=== PATIENT | female | born 1950 | race Caucasian/White ===

== ENCOUNTER 2019-08-24 13:47 | Outpatient (CLI) | payer MEDICARE, OTHER ==
[~2019-08-24] VITALS: Ht 152 cm; Wt 75.4 kg
[2019-08-24 14:53] VITALS: BP 198/83
[2019-08-24 15:22] LABS: BASOPHILS % (AUTO) 1 % (0-10); EOSINOPHILS # (AUTO) 0.1 10^3/uL (0.0-0.3); EOSINOPHILS % (AUTO) 1 % (0-10); HEMATOCRIT 37 % (35-52); HEMOGLOBIN 11.6 G/DL (11.5-16.0); LYMPHOCYTES # (AUTO) 1.9 X 10^3 (1.0-4.0); LYMPHOCYTES % (AUTO) 26 % (12-44); MEAN CORPUSCULAR HEMOGLOBIN 25 PG (25-34); MEAN CORPUSCULAR HGB CONC 31 G/DL (32-36); MEAN CORPUSCULAR VOLUME 79 FL (80-99); MEAN PLATELET VOLUME 10.1 FL (7.4-10.4); MONOCYTES # (AUTO) 0.6 X 10^3 (0.0-1.0); MONOCYTES % (AUTO) 8 % (0-12); NEUTROPHILS # (AUTO) 4.7 X 10^3 (1.8-7.8); NEUTROPHILS % (AUTO) 64 % (42-75); PLATELET COUNT 339 10^3/uL (130-400); RED CELL DISTRIBUTION WIDTH 14.2 % (10.0-14.5); WHITE BLOOD COUNT 7.3 10^3/uL (4.3-11.0)
[2019-08-24] MEDS ORDERED: ASPI-983 PO (16:14)
[2019-08-24] MEDS ORDERED: CHOL10007 PO (16:14)
[2019-08-24] MEDS ORDERED: LACT1CAP72 PO (16:14)
[2019-08-24] MEDS ORDERED: MELA3TAB PO (16:14)
[2019-08-24] MEDS ORDERED: GOLI50VI IV (16:20)
[2019-08-25] MEDS ORDERED: HYDR-3812 PO (15:43)
[2019-08-25] MEDS ORDERED: TRAM50TA2 PO (15:43)
[2019-08-25] MEDS ORDERED: ALLO300T2 PO (15:43)
[2019-08-25] MEDS ORDERED: ERGO50006 PO (15:43)
[2019-08-25] MEDS ORDERED: SIMPONI (15:49)
[2019-08-25] MEDS ORDERED: GOLI50VI IV (15:49)
[2019-08-25] MEDS ORDERED: INSU100V SQ (15:51)
[2019-08-25] MEDS ORDERED: ATOR40TA70 PO (15:58)
[2019-08-25] MEDS ORDERED: DOXA2TAB2 PO (15:58)
[2019-08-25] MEDS ORDERED: CLOP75TA69 PO (15:58)
[2019-08-25] MEDS ORDERED: METO200T48 PO (15:58)
[2019-08-25] MEDS ORDERED: DONE10TA41 PO (15:58)
[2019-08-25] MEDS ORDERED: NF-ACI30T PO (15:58)
[2019-08-25] MEDS ORDERED: LISI1TAB8 PO (15:58)
== END 2019-08-24 15:30 ==
LOC: PREOP 13:47
PROVIDERS: ATTEND Orthopaedic Surgery
DX: Z01.812 Encounter for preprocedural laboratory examination (principal); M48.061 Spinal stenosis, lumbar region without neurogenic claudication; Z98.1 Arthrodesis status
CPT/HCPCS: 36415; 85025; 86850; 86900; 86901; 87081

== ENCOUNTER 2019-08-29 05:48 | Inpatient (IN) | payer MEDICARE, OTHER ==
[~2019-08-29] VITALS: Ht 152 cm; Wt 75.4 kg
[2019-08-29] VITALS (15 sets, daily range): BP systolic 76–156; BP diastolic 31–87
[~2019-08-29 05:48] MED LIST: ALLO300T2 PO; ASPI-983 PO; ATOR40TA70 PO; CHOL10007 PO; CLOP75TA69 PO; DONE10TA41 PO; DOXA2TAB2 PO; ERGO50006 PO; GOLI50VI IV; HYDR-3812 PO; INSU100V SQ; LACT1CAP72 PO; LISI1TAB8 PO; MELA3TAB PO; METO200T48 PO; NF-ACI30T PO; SIMPONI; TRAM50TA2 PO
[2019-08-29] MEDS ORDERED: ceFAZolin 2 GM IV Premixed 50 ML IV ONE (06:15)
[2019-08-29] MEDS ORDERED: CATHETER FLUSH 10 ML SYR IV PRN (06:45)
[2019-08-29] MEDS ORDERED: proPOfol 200 MG/20 ML (DIPRIVAN) VIAL IV ONE (06:54)
[2019-08-29] MEDS ORDERED: LIDOCAINE PF 2% 5 ML (XYLOCAINE) VIAL ONE (06:54)
[2019-08-29] MEDS ORDERED: SEVOFLURANE (ULTANE) 15 ML INHAL SOLN ONE ×6 (06:54→11:14)
[2019-08-29] MEDS ORDERED: fentaNYL INJECTION 100 MCG/2 ML AMP ONE ×2 (06:55→08:14)
[2019-08-29] MEDS ORDERED: MIDAZOLAM 2 MG/2 ML (VERSED) VIAL ONE (06:55)
[2019-08-29] MEDS: LACTATED RINGERS 1,000 ML IV PRN ×3 (06:55→10:54)
[2019-08-29] MEDS ORDERED: NS (IVPB) 100 ML ONE (07:09)
[2019-08-29] MEDS ORDERED: BACITRACIN OINTMENT 28 GM TUBE ONE (07:17)
[2019-08-29] MEDS ORDERED: VANCOMYCIN 1000 MG/VIAL ONE (07:17)
[2019-08-29] MEDS ORDERED: BUP/EPI 0.5% 1:200,000 (MARCAINE) 10ML VIAL IJ ONE ×2 (07:19→07:52)
[2019-08-29] MEDS ORDERED: BACITRACIN 100,000 UNIT/NS 1000 ML POUR BOTTLE IR ONE ×2 (07:45)
[2019-08-29] MEDS ORDERED: SUCCINYLCHOLINE INJ 100 MG/5 ML SYR ONE (08:14)
[2019-08-29] MEDS ORDERED: ROCURONIUM 10 MG/ML 5 ML SYRINGE IV ONE (08:14)
[2019-08-29] MEDS ORDERED: NEOSTIGMINE 3 MG/3 ML VIAL ONE (09:21)
[2019-08-29] MEDS ORDERED: GLYCOPYRROLATE 0.2 MG/ML (ROBINUL) 2 ML VIAL ONE (09:21)
[2019-08-29] MEDS ORDERED: ONDANSETRON 4 MG/2 ML (SDV) Z0FRAN IV PRN (10:00)
[2019-08-29] MEDS ORDERED: ACETAMINOPHEN 325 MG TABLET PO PRN (10:00)
[2019-08-29] MEDS ORDERED: oxyCODONE/APAP 5/325MG (PERCOCET 5) TABLET PO PRN (10:00)
[2019-08-29] MEDS ORDERED: morphine INJ 10 MG/ML 1ML (SYR OR VIAL) IVP ONE (10:15)
[2019-08-29] MEDS ORDERED: MEPERIDINE (DEMEROL) INJ 50 MG/ML IVP ONE (10:15)
[2019-08-29] MEDS ORDERED: ONDANSETRON 4 MG/2 ML (SDV) Z0FRAN IVP PRN (10:15)
--- NOTE | 2019-08-29 11:14 | Diagnostic Imaging Report ---
INDICATION: Fluoroscopy for lumbar spine surgery. Fluoroscopy was provided in the OR during lumbar spine surgery. 32 seconds of fluoroscopic time was utilized. Images demonstrate postoperative changes of interbody fusion of the upper lumbar spine. IMPRESSION: Fluoroscopy for lumbar spine surgery. Dictated by: Dictated on workstation # [id number]
--- NOTE | 2019-08-29 12:02 | Anesthesia-General Post-Op ---
General Patient Condition Mental Status/LOC: Same as Preop (after fluid bolus and treated medically in PACU) Cardiovascular: Satisfactory Nausea/Vomiting: Absent Respiratory: Satisfactory Pain: Controlled Complications: Absent Post Op Complications Complications None Follow Up Care/Instructions Patient Instructions None needed. Anesthesia/Patient Condition Patient Condition Patient is doing well, no complaints, stable vital signs, no apparent adverse anesthesia problems. No complications reported per nursing. SIMÓN BALDWIN CRNA Aug 29, 2019 12:02 POS
[2019-08-29] MEDS: fentaNYL INJECTION 100 MCG/2 ML AMP IVP PRN ×4 (12:24→16:56)
--- NOTE | 2019-08-29 13:37 | OPERATIVE REPORT ---
DATE OF SERVICE: 08/29/2019 SURGEON: Darrius Chandler DO WEIGHT LOSS CENTRE MANAGER: SILVESTRE Branch. This is a medically necessary procedure. Data Warehouse Manager was necessary for retraction of vital neurovascular structures. Without an retail assistant store manager, the procedure would not be possible. PREOPERATIVE DIAGNOSES: 1. L2-L3 spondylolisthesis. 2. Lumbar spinal stenosis (bony, foraminal, subluxation). 3. Lumbar radiculopathy. POSTOPERATIVE DIAGNOSES: 1. L2-L3 spondylolisthesis. 2. Lumbar spinal stenosis (bony, foraminal, subluxation). 3. Lumbar radiculopathy. PROCEDURES PERFORMED: 1. L2-L3 direct lateral interbody lumbar fusion. 2. Application of titanium interbody cage L2-L3. 3. Application of anterior instrumentation, L2-L3. 4. Bilateral laminectomy with complete facetectomies, L2-L3. 5. Application of posterior instrumentation (right-sided), L2-L3. 6. Posterior spinal fusion, L2-L3. 7. Use of human Allograft for spine. 8. Use of local bone autograft. COMPLICATIONS: None. SPECIMEN SENT: None. DRAINS PLACED: Subfascial Hemovac. ESTIMATED BLOOD LOSS: 200 mL. ANESTHESIA: General endotracheal tube anesthesia with local anesthetic. HISTORY OF PRESENT ILLNESS: The patient is a very pleasant 69-year-old female patient of mine, who presented to me with low back pain and symptoms consistent with L2-L3 spinal stenosis. MRI verified these diagnoses and she did wish to proceed with surgery after having failed all conservative measures. DESCRIPTION OF PROCEDURE: The patient was identified by name on wrist band in the preoperative holding area. Her operative site was signed, consent was signed. SCDs were placed. Neuromonitoring was hooked up and antibiotics were started. She was taken to the operating room theater and placed under general endotracheal tube anesthesia and then transferred to the operating room table in the lateral position with the left side up. She was prepped and draped in the usual sterile fashion. Formal timeout was conducted. X-ray was then brought in and I made an incision over the L2-L3 disk space. I proceeded with a standard lateral retroperitoneal transpsoas approach to the L2-L3 disk space. I docked a tubular table, mounted Reva retractor over the midpoint of the L2-L3 disk space. I used EMG neuromonitoring to exclude the presence of any nerves. I then performed an annulotomy followed by complete diskectomy. I sized and chose the appropriate titanium interbody cage packed with human allograft and seated into the midline position. At this point, I placed anterior instrumentation in the form of plate and screws. The screws went through the plate into the body of L2 and into the body of L3. I irrigated the wound, maintained hemostasis and closed in my usual layered fashion utilizing #0 Vicryl followed by 2-0 Vicryl followed by riccardo for skin. We applied dressings and we then placed the patient in the prone position on a radiolucent Wilder table. We reprepped and draped the patient. At this point, I made a midline incision from spinous process of L2 and spinous process of L3. I proceeded with bilateral subperiosteal paraspinal muscular approach. I then used fluoroscopy to place unilateral pedicle screws in the pedicle of L2 and the pedicle of L3. AP and lateral x-ray demonstrated good positioning of the screws, the EMG neuromonitoring further validated this. At this point, I performed bilateral laminectomy with complete facetectomy and foraminotomies at L2-L3 thoroughly decompressing the exiting and traversing nerve roots. At this point, I placed a anna on the right through the TLIF, placed set screws and finally tightened those set screws. I irrigated the wound thoroughly, maintained hemostasis. I packed human allograft and local bone autograft in the left and right gutters to promote posterior spinal fusion. I placed a subfascial Hemovac drain and I closed the wound utilizing #0 Vicryls followed by 2-0 Vicryl followed by riccardo for skin. We applied dressings and took the patient in the supine position in the PACU where she awoke without incident. She tolerated the procedure well. PLAN: At this time is to get the patient out of bed on postop day #1. I am going to admit her for IV antibiotics, IV pain control and postoperative monitoring. Please note that the instrumentation utilized was Eli for the TLIF cage, NuVasive for the posterior screws. Job ID: [id number] DocumentID: [id number] Dictated Date: 08/29/2019 09:52:16 Rubber Cutter Date: 08/29/2019 13:36:04 Dictated By: DARRIUS CHANDLER DO
[2019-08-29] MEDS: HYDROcodone/APAP 5 MG/325 MG (LORTAB) TAB PO PRN ×2 (14:13→19:01)
[2019-08-29] MEDS: ceFAZolin INJECTION 1,000 MG in WATER (STERILE) FOR INJECTION 10 ML IV SCH ×2 (15:32→22:03)
[2019-08-29] MEDS ORDERED: NS IV 1000 ML 1,000 ML ONE (18:40)
[2019-08-29] MEDS ORDERED: NS 500 ML IV BAG IV NR (18:45)
[2019-08-29] MEDS ORDERED: NS 100 ML (IVPB) BAG IV ONE (18:45)
[2019-08-29] MEDS: doxAzosin 2 MG (CARDURA) TAB PO SCH (19:55)
[2019-08-30] VITALS: BP 160/74
[2019-08-30 04:00] VITALS: BP 122/64
[2019-08-30 05:07] LABS: HEMOGLOBIN 8.2 G/DL (11.5-16.0); MEAN PLATELET VOLUME 10.2 FL (7.4-10.4); RED CELL DISTRIBUTION WIDTH 14.2 % (10.0-14.5); WHITE BLOOD COUNT 9.7 10^3/uL (4.3-11.0)
[2019-08-30] MEDS: ceFAZolin INJECTION 1,000 MG in WATER (STERILE) FOR INJECTION 10 ML IV SCH (05:10)
[2019-08-30] MEDS: NS IV 1000 ML 1,000 ML IV SCH ×3 (05:13→18:47)
[2019-08-30 05:25] LABS: ALBUMIN 2.9 GM/DL (3.2-4.5); BILIRUBIN,TOTAL 0.4 MG/DL (0.1-1.0); CALCIUM 9.4 MG/DL (8.5-10.1); CREATININE SERUM 1.43 MG/DL (0.60-1.30); POTASSIUM 3.6 MMOL/L (3.6-5.0); TOTAL PROTEIN 5.4 GM/DL (6.4-8.2)
[2019-08-30] MEDS: HYDROcodone/APAP 5 MG/325 MG (LORTAB) TAB PO PRN ×3 (07:50→18:46)
[2019-08-30 08:00] VITALS: BP 153/82
[2019-08-30] MEDS ORDERED: lisINopril 10 MG (PRINIVIL) TABLET PO SCH (09:00)
[2019-08-30] MEDS: PANTOPRAZOLE 20 MG TABLET (PROTONIX) PO SCH (09:06)
[2019-08-30] MEDS: meTOprolol SUCCINATE 100 MG (TOPROL XL) TAB PO SCH (09:06)
[2019-08-30] MEDS: MULTIVIT W/MINERALS TAB (THERAGRAN M) PO SCH (09:06)
[2019-08-30] MEDS: DONEPEZIL 10 MG (ARICEPT) TAB PO SCH (09:07)
--- NOTE | 2019-08-30 09:42 | Physical Therapy Evaluation ---
PT Evaluation-General Medical Diagnosis Admission Date Aug 29, 2019 at 05:48 Medical Diagnosis: stenosis; L2-3 fusion with bone allograft and caging Onset Date: Aug 29, 2019 Therapy Diagnosis Therapy Diagnosis: debility, weakness Precautions Precautions/Isolations: Fall Prevention, Standard Precautions Weight Bear Status Right Lower Extremity: Right Non Weight Bearing Left Lower Extremity: Left Non Weight Bearing Referral Physician: Bernie Reason for Referral: Evaluation/Treatment Medical History Reviewed History: Yes Social History Home: Single Level Current Living Status: Spouse Prior Prior Level of Function SCALE: Activities may be completed with or without assistive devices. 1-Kcbeiohatp-zhtxmjs completes the activity by him/herself with no assistance from a helper. 5-Set-up or Clean-up Assistance-helper sets up or cleans up; patient completes activity. [place] assists only prior to or following the activity. 4-Supervision or Touching Assistance-helper provides verbal cues and/or t ouching/steadying and/or contact guard assistance as patient completes activity. Assistance may be provided throughout the activity or intermittently. 3-Partial/Moderate Assistance-helper does LESS THAN HALF the effort. [place] lifts, holds or supports trunk or limbs, but provides less than half the effort. 2-Substantial/Maximal Assistance-helper does MORE THAN HALF the effort. [place] lifts or holds trunk or limbs and provides more than half the effort. 5-Ibowdzrre-qpkfol does ALL the effort. Patient does none of the effort to complete the activity. Or, the assistance of 2 or more helpers is required for the patient to complete the activity. If activity was not attempted, code reason: 7-Patient Refused. 9-Not Applicable-not attempted and the patient did not perform the activity before the current illness, exacerbation or injury. 10-Not Attempted due to Environmental Limitations-(lack of equipment, weather restraints, etc.). 88-Not Attempted due to Medical Conditions or Safety Concerns. Bed Mobility: 3 Transfers (B,C,W/C): 3 Gait: 9 Stairs: 9 Wheelchair Mobility: 3 Prior Devices Use: Manual wheelchair nonambulatory x 1 yr or more per patient report/spouse performs all functional mobility and ADL's PT Evaluation-Current Subjective Patient agrees to PT. Reports severe pain. Patient has not moved much since hospitalization, reports she gets around by wheelchair normally and helps with all mobility. Pain Numeric Pain Scale: 10-Worst Possible Pain Location: Lower Location Body Site: Back Pain Description: Acute Objective Patient Orientation: Normal For Age Attachments: SCD's, Oxygen (3L), IV ROM/Strength ROM Lower Extremities WFL Strength Lower Extremities Bilaterally 3/5 Integumentary/Posture Integumentary See nursing notes Bowel Incontinence: No Bladder Incontinence: No Posture kyphotic, especially cervical Sensory Vision: Functional Hearing: Functional Transfers Roll Left to Right (QC): 2 Sit to Lying (QC): 1 Lying to Sitting/Side of Bed(Q: 2 Sit to Stand (QC): 1 Chair/Spq-jm-Vzghj Xfer(QC): 1 Car Transfer (QC): 88 Gait Does the Patient Walk?: No and Walking Goal IS indicated Mode of Locomotion: Both Anticipated Mode of Locomotion: Both Walk 10 feet (QC): 9 Walk 50 ft with 2 Turns(QC): 9 Walk 150 ft (QC): 9 Walking 10ft/uneven surface-QC: 9 Gait Assistive Device: FWW Comments/Gait Description 5-10' Wheelchair Training Does the Pt Use a Wheelchair?: Yes Wheel 50 ft with 2 turns (QC): 9 Wheel 150 ft (QC): 9 Type of Wheelchair: Manual spouse propels w/c Stairs 1 Step (curb) (QC): 9 4 Steps (QC): 9 12 Steps (QC): 9 Balance Sitting Static: Normal Sitting Dynamic: Normal Standing Static: Fair Standing Dynamic: Fair Picking up an Object (QC): 9 Assessment/Needs Patient required max assist with bed mobility to roll to side and sit to EOB, d/t weakness and pain limitations. Increase in pain once sitting EOB. Brace was placed around patient prior to transfer. Patient was dependent for STS and transfer to wheelchair. Rehab Potential: Fair PT [place] Goals Nursing Home Goals PT Nursing Home Goals Time Frame: Sep 06, 2019 Roll Left & Right (QC): 3 Sit to Lying (QC): 3 Lying-Sitting on Side/Bed(QC): 3 Sit to Stand (QC): 3 Chair/Mrh-ug-Dizht Xfer(QC): 3 Toilet Transfer (QC): 3 Car Transfer (QC): 3 Does the Patient Walk: No and Walking Goal IS indicated Walk 10 feet (QC): 2 Walk 50ft with 2 Turns (QC): 9 Walk 150 ft (QC): 9 Walking 10ft on Uneven Surface: 9 1 Step (curb) (QC): 9 4 Steps (QC): 9 12 Steps (QC): 9 Picking up an Object (QC): 9 Does the Pt use WC or Scooter?: Yes Wheel 50 feet with 2 turns (QC: 3 Type: Manual Type: Manual spouse propels w/c PT Plan Problem List Problem List: Activity Tolerance, Functional Strength, Safety, Balance, Transfer, Bed Mobility Treatment/Plan Treatment Plan: Continue Plan of Care Treatment Plan: Bed Mobility, Education, Functional Activity Ady, Functional Strength, Safety, Therapeutic Exercise, Transfers Treatment Duration: Sep 10, 2019 Frequency: 6 times per week Estimated Hrs Per Day: .5 hour per day Patient and/or Family Agrees t: Yes Discharge Recommendations Therapy Discharge Recommendati: Other, See Comments (snf facilitly for continued care) Time/GCodes Time In: 915 Time Out: 932 Total Billed Treatment Time: 17 Total Billed Treatment 1 visit EVModC 17min REYNA SY PT Aug 30, 2019 09:42 POS
[2019-08-30 12:00] VITALS: BP 183/60
--- NOTE | 2019-08-30 12:34 | Diagnostic Imaging Report ---
INDICATION: Pain. FINDINGS: Posterior left lateral and interbody fusion at L2-L3 has been performed. The alignment is anatomic. There is an overlying surgical drain and soft tissue clips. No suspicious foreign body is evident. IMPRESSION: Spinal instrumentation with no acute pathological finding revealed. Dictated by: Dictated on workstation # [id number]
--- NOTE | 2019-08-30 13:06 | Occ Therapy Progress Note ---
Therapy Progress Note Order received for OT eval and treat. Chart review completed. Attempted evaluation at 1110. Pt resting in bed, declined therapy at this time. Pt requests pain meds, RN notified. Will attempt to complete at later time as pt able to tolerate. 1, visit SUSY MONTEIRO OT Aug 30, 2019 13:06 POS
[2019-08-30] MEDS: fentaNYL INJECTION 100 MCG/2 ML AMP IVP PRN ×2 (13:57→18:47)
--- NOTE | 2019-08-30 14:00 | Occupational Therapy Eval ---
OT Evaluation-General/PLF Medical Diagnosis Admission Date Aug 29, 2019 at 05:48 Medical Diagnosis: stenosis; L2-3 fusion with bone allograft and caging Onset Date: Aug 29, 2019 Therapy Diagnosis Therapy Diagnosis: Decreased ADL and functional mobility Precautions Precautions/Isolations: Fall Prevention, Standard Precautions Safety Interventions: Bed Exit Alarm Weight Bear Status Weight Bearing Restriction: Non Weight Bearing Location Restriction: L LE, R LE Referral Physician: Bernie Referral Reason: Activity Tolerance, Self Care, Evaluation/Treatment, Strengthening/ROM Medical History Additional Medical History No additional PMHx noted at this time. Current History lumbar spinal stenosis with L2-3 fusion Reviewed History: Yes Social History Home: Single Level Current Living Status: Spouse Entry Into Home: Level Entry (pt and state stairs to enter though if they drive uphill then level entry to backside, though a longer/ more rough terrain ) Steps Into Home: 0 ADL-Prior Level of Function SCALE: Activities may be completed with or without assistive devices. 4-Ngtmyjsdfk-otsuico completes the activity by him/herself with no assistance from a helper. 5-Set-up or Clean-up Assistance-helper sets up or cleans up; patient completes activity. [place] assists only prior to or following the activity. 4-Supervision or Touching Assistance-helper provides verbal cues and/or touching/steadying and/or contact guard assistance as patient completes activity. Assistance may be provided throughout the activity or intermittently. 3-Partial/Moderate Assistance-helper does LESS THAN HALF the effort. [place] lifts, holds or supports trunk or limbs, but provides less than half the effort. 2-Substantial/Maximal Assistance-helper does MORE THAN HALF the effort. [place] lifts or holds trunk or limbs and provides more than half the effort. 5-Pznlynbie-iwzhxf does ALL the effort. Patient does none of the effort to complete the activity. Or, the assistance of 2 or more helpers is required for the patient to complete the activity. If activity was not attempted, code reason: 7-Patient Refused. 9-Not Applicable-not attempted and the patient did not perform the activity before the current illness, exacerbation or injury. 10-Not Attempted due to Environmental Limitations-(lack of equipment, weather restraints, etc.). 88-Not Attempted due to Medical Conditions or Safety Concerns. Self Care: Needed Some Help Functional Cognition: Independent DME/Equipment: Bath Chair, Tub/Shower DME/Equipment Comments Pt states she was able to complete most ADLs on own with use of w/c. Occupation: retired Drive Self: No Leisure Interests: sabianism OT Current Status Subjective Pt seen in bed. Pt c/o 5/10 pain in back, agreeable to OT eval and treat. Mental Status/Objective Patient Orientation: Person, Place, Situation, Normal For Age Attachments: Drains, IV, Oxygen Current Glasses/Contacts: Yes Hearing Aids: No Dentures/Partials: No Hand Dominance: Right Upper Extremity ROM WFL BUE PROM Upper Extremity Coordination WFL BUE Upper Extremity Sensation WFL no c/o paresthesias Upper Extremity Strength impaired: pt able to reach ~90* shoulder flexion with increased time. ADL-Treatment Eating (QC): 5 (Pt completes drinking from straw with s/u) Oral Hygiene (QC): 07 Shower/Bathe Self (QC): 07 Upper Body Dressing (QC): 1 (based on pt's pain level and functional mobility, pt would be TD for back brace donning.) Lower Body Dressing (QC): 1 (based on pt's pain level and functional mobility) On/Off Footwear (QC): 1 (based on pt's pain level and functional mobility) Toileting Hygiene (QC): 1 (based on pt's pain level and functional mobility) Toilet Transfer (QC): 1 (based on pt's pain level and functional mobility) Other Treatments Pt seen in bed, and emts present. Pt leaning to R side, requires TD to adjust hips/ shoulders for straight positioning. Pt's attempts to reposition when pt requests, holds on to pt's arm. educated on need to adjust from core rather than arm for safety. Pt completes evaluation in bed, s/u for food. Based on clinical judgement, pt would be TD for UB/ LB dressing, footwear, toileting and hygiene. Pt denies need for further grooming/ bathing tasks. Pt states she could go to the bathroom if needed, pt's and emts leaves room. Pt asked of NWB status, pt's nursing unit coordinator states pt was able to utilize FWW to get from recliner to bed earlier in day. Pt states she is unaware of precautions. Pt states increased pain when mobilizing from reclined position, nursing unit coordinator present, able to hold pt's core and attempt back brace donning ramirez joya pt's back held in midline. Pt expresses increased pain and requests desire for pain medication before moving to commode. Pt repositioned with nursing unit coordinator assist with TD back to bed. Pt sat up and repositioned for feeding task, able to reach and drink tea. Pt educated on pain management and medication administration prior to feeling overwhelmed with pain. Pt agrees, left in bed, call light in reach, all needs met, notified of pt's position. Education OT Patient Education: Correct positioning, Modified ADL techniques, Purpose of tx/functional activities, Reviewed precautions, Rehab process, Safety issues Teaching Recipient: Patient Teaching Methods: Demonstration, Discussion Response to Teaching: Verbalize Understanding OT Senior Net Application Developer Goals [facility] Goals Time Frame: Sep 13, 2019 Eating (QC): 6 Oral Hygiene (QC): 6 Toileting Hygiene (QC): 3 Shower/Bathe Self (QC): 3 Upper Body Dressing (QC): 4 Lower Body Dressing (QC): 3 On/Off Footwear (QC): 3 Additional Goals: 1-Demonstrate ADL Tasks, 2-Verbalize Understanding, 3- ImproveStrength/Ady 1=Demonstrate adherence to instructed precautions during ADL tasks. 2=Patient will verbalize/demonstrate understanding of assistive devices/modifications for ADL. 3=Patient will improve strength/tolerance for activity to enable patient to perform ADL's. OT Education/Plan Problem List/Assessment Assessment: Decreased Activ Tolerance, Decreased UE Strength, Dependent Transfers, Impaired Bed Mobility, Impaired Funct Balance, Impaired I ADL's, Impaired Self-Care Skills, Restricted Funct UE ROM Discharge Recommendations Plan/Recommendations: Continue POC Treatment Plan/Plan of Care Treatment,Training & Education: Yes Patient would benefit from OT for education, treatment and training to promote independence in ADL's, mobility, safety and/or upper extremity function for ADL's. Plan of Care: ADL Retraining, Caregiver Training, Concurrent Therapy, Functional Mobility, UE Funct Exercise/Act Treatment Duration: Sep 13, 2019 Frequency: 5 times per week Estimated Hrs Per Day: .25 hour per day Rehab Potential: Fair Time/GCodes Start Time: 12:57 Stop Time: 13:24 Total Time Billed (hr/min): 27 Billed Treatment Time 1, EVM (12), ADL (15)= 27 YOMAIRA POND OTR Aug 30, 2019 14:00 POS
--- NOTE | 2019-08-30 14:58 | Anesthesia-General Post-Op ---
General Patient Condition Mental Status/LOC: Same as Preop Cardiovascular: Satisfactory Nausea/Vomiting: Absent Respiratory: Satisfactory Pain: Controlled Complications: Absent Post Op Complications Complications None Follow Up Care/Instructions Patient Instructions None needed. Anesthesia/Patient Condition Patient Condition Patient is doing well, no complaints, stable vital signs, no apparent adverse anesthesia problems. No complications reported per nursing. ELKIN BACA CRNA Aug 30, 2019 14:58 POS
--- NOTE | 2019-08-30 15:04 | Consultation - Hospitalist ---
HPI History of Present Illness: HPI/Chief Complaint Pt is a 69yoCM with a PMH of HTN, IDDMII, dementia who was admitted for L2-L3 fusion and laminectomy by Dr Chandler. I am consulted for medical management. She reports she is doing well today and has already worked with PT. Her pain is currently controlled but still present. She reports she has already gotten up an goen to the bathroom as well. She is currently wearing her insulin pump and believes her basal rate is 1u/hr but is not sure and can't access it now due to her brace. Her states that she does carb counting for meals but her appetite has been down while she has been here. Her BP has also been elevated this afternoon. On review of labs her creatinine is 1.4 and I have no baseline to decipher if this is an LISS or CKD. Source: patient Date Seen 08/30/19 Attending Physician Darrius Chandler DO PCP Bradley Messer DO Referring Physician Dr Chandler Date of Admission Aug 29, 2019 at 05:48 Home Medications & Allergies Home Medications Reviewed patient Home Medication Reconciliation performed by pharmacy medication reconciliations construction technician and/or nursing. Patients Allergies have been reviewed. Allergies Allergies Coded Allergies Sulfa (Sulfonamide Antibiotics) (Verified Allergy, Mild, FLUSHED, 08/24/19) Past Icagwgf-Ihmxjt-Gekvvh Hx Past Med/Social Hx: Reviewed Nursing Past Med/Soc Hx Patient Social History Alcohol Use: Denies Use Recreational Drug Use: No Smoking Status: Never a Smoker Physical Abuse Screen: No Sexual Abuse: No Recent Foreign Travel: No Contact w/other who traveled: No Recent Hopitalizations: Yes (JUN 2019 FOR LOW BLOOD SUGAR) Recent Infectious Disease Expo: No Immunizations Up To Date Date of Pneumonia Vaccine: Aug 28, 2017 Date of Influenza Vaccine: Jul 12, 2019 Seasonal Allergies Seasonal Allergies: No Past Medical History Surgeries: Orthopedic Cardiac: Coronary Artery Disease, Heart Murmur, High Cholesterol, Hypertension Sexually Transmitted Disease: No HIV/AIDS: No Genitourinary: Kidney Stones Gastrointestinal: Gastroesophageal Reflux, Chronic Constipation Musculoskeletal: Chronic Back Pain Endocrine: Diabetes, Insulin dep Loss of Vision: Denies Hearing Impairment: Denies Psychosocial: Anxiety, Depression Skin/Integumentary: Psoriasis History of Blood Disorders: Yes (ANEMIA) Adverse Reaction to Blood Michelle: No Review of Systems Constitutional: no symptoms reported EENTM: no symptoms reported Respiratory: no symptoms reported Cardiovascular: no symptoms reported Gastrointestinal: no symptoms reported Genitourinary: no symptoms reported Musculoskeletal: see HPI Skin: no symptoms reported Psychiatric/Neurological: No Symptoms Reported Physical Exam Physical Exam Vital Signs Vital Signs - First Documented Capillary Refill : Less Than 3 Seconds Height, Weight, BMI Height: '" Weight: lbs. oz. kg; 32.63 BMI Method: General Appearance: No Apparent Distress, Chronically ill, Obese HEENT: Moist Mucous Membranes; No Scleral Icterus (L), No Scleral Icterus (R) Neck: Supple; No Thyromegaly Respiratory: Lungs Clear, No Accessory Muscle Use, No Respiratory Distress Cardiovascular: Regular Rate, Rhythm, Systolic Murmur Gastrointestinal: Normal Bowel Sounds, Non Tender, Soft Extremity: No Calf Tenderness, No Pedal Edema Neurologic/Psychiatric: Alert, Oriented x3, Normal Mood/Affect Skin: Normal Color, Warm/Dry Results Results/Procedures Labs Laboratory Tests 08/30/19 04:40 Patient resulted labs reviewed. Assessment/Plan Assessment and Plan Assess & Plan/Chief Complaint L2-L3 spondylolisthesis s/p bilateral laminectomy and fusion PT/OT Pain control Management per primary Elevated Creatinine Unsure if CKD or LISS Continue IVF Check labs in AM Hold lisinopril IDDMII Accu checks Continue insulin pump HTN Systolic Murmur- likely CAD BP elevated Continue home meds as able Follows with Dr Cantor as an outpatient Microcytic anemia reportedly chronic anemia Check in AM Transfuse for Hemoglobin less than 8 due to heart disease Clinical Quality Measures DVT/VTE Risk/Contraindication: Risk Factor Score Per Nursin RFS Level Per Nursing on Admit: 3=High SHARRI DONNELLY MD Aug 30, 2019 15:04 POS
[2019-08-30 16:00] VITALS: BP 139/62
--- NOTE | 2019-08-30 17:18 | Progress Note ---
Subjective Date Seen by a Provider: Aug 30, 2019 Time Seen by a Provider: 17:13 Subjective/Events-last exam POD #1 s/p DLIF, lami/ psif. Called by the nurse last night x 2 for oliguria. Bolused patient and ns started 100/hr. Order BMP but BNP was placed in error, CMP this am showed elevated Cr without comparative baseline. Dr Munoz consulted for LISS. Patient reports back and leg pain and has been OOT with PT. Encouraged IS which is at bedside. Review of Systems General: No Chills HEENT: No Head Aches Cardiovascular: No: Chest Pain Gastrointestinal: No: Nausea, Vomiting Genitourinary: Other (oliguria) Musculoskeletal: back pain, leg pain Neurological: No: Weakness, Numbness, Incoordination Objective Exam Vital Signs Date Time Temp Pulse Resp B/P (MAP) Pulse Ox O2 Delivery O2 Flow Rate FiO2 08/30/19 16:00 36.6 63 18 139/62 (87) 94 Room Air 08/30/19 12:00 36.7 62 16 183/60 (101) 99 Nasal Cannula 2.00 08/30/19 09:00 Nasal Cannula 2.00 08/30/19 08:00 36.8 72 18 153/82 (105) 100 Nasal Cannula 2.00 08/30/19 06:00 99 Nasal Cannula 2.00 08/30/19 04:00 36.7 68 20 122/64 (83) 96 Nasal Cannula 2.00 08/30/19 02:18 99 Nasal Cannula 2.00 08/30/19 00:00 37.3 72 16 160/74 (102) 98 Nasal Cannula 2.00 08/29/19 21:44 99 Nasal Cannula 2.00 08/29/19 20:00 36.7 71 16 155/75 (101) 100 Nasal Cannula 2.00 08/29/19 20:00 Nasal Cannula 2.00 08/29/19 18:41 100 Nasal Cannula 2.00 I & O 08/30/19 07:00 Intake Total 3290 ml Output Total 255 ml Balance 3035 ml Capillary Refill : Less Than 3 Seconds General Appearance: No Apparent Distress Neck: No JVD Respiratory: No No Accessory Muscle Use, No No Respiratory Distress Extremity: Normal Range of Motion, Non Tender, No Calf Tenderness, No Pedal Edema Neurologic/Psychiatric: Alert, No Motor/Sensory Deficits Skin: Normal Color, Warm/Dry Results Lab Laboratory Tests 08/29/19 19:45: B-Type Natriuretic Peptide 713.3H 08/29/19 20:30: Glucometer 214H 08/30/19 04:40: White Blood Count 9.7, Red Blood Count 3.26L, Hemoglobin 8.2#L, Hematocrit 27L, Mean Corpuscular Volume 81, Mean Corpuscular Hemoglobin 25, Mean Corpuscular Hemoglobin Concent 31L, Red Cell Distribution Width 14.2, Platelet Count 225, Mean Platelet Volume 10.2, Sodium Level 140, Potassium Level 3.6, Chloride Level 108H, Carbon Dioxide Level 23, Anion Gap 9, Blood Urea Nitrogen 17, Creatinine 1.43H, Estimat Glomerular Filtration Rate 36, BUN/Creatinine Ratio 12, Glucose Level 125H, Calcium Level 9.4, Corrected Calcium 10.3H, Total Bilirubin 0.4, Aspartate Amino Transf (AST/SGOT) 32, Alanine Aminotransferase (ALT/SGPT) 12, Alkaline Phosphatase 43, Total Protein 5.4L, Albumin 2.9L 08/30/19 05:54: Glucometer 124H 08/30/19 12:56: Glucometer 116H 08/30/19 15:45: Glucometer 112H Assessment/Plan Assessment/Plan Assess & Plan/Chief Complaint assessment: POD #1 s/p dlif/lami/psif CAD LISS Plan: Back brace scd for dvt prophylaxis mobilization and PT IS at bedside and encouraged appriciate Dr Starr assistance with the case and medical management Clinical Quality Measures DVT/VTE Risk/Contraindication: Risk Factor Score Per Nursin RFS Level Per Nursing on Admit: 3=High JENNIFER TRACEY Aug 30, 2019 17:18 POS
[2019-08-30 20:05] VITALS: BP 129/90
[2019-08-30] MEDS: doxAzosin 2 MG (CARDURA) TAB PO SCH (20:55)
[2019-08-30] MEDS: ALLOPURINOL 300 MG (ZYLOPRIM) TAB PO SCH (21:00)
[2019-08-31] VITALS (8 sets, daily range): BP systolic 146–186; BP diastolic 64–80
[2019-08-31 05:55] LABS: CREATININE SERUM 1.03 MG/DL (0.60-1.30); POTASSIUM 3.9 MMOL/L (3.6-5.0)
[2019-08-31] MEDS: NS IV 1000 ML 1,000 ML IV SCH ×3 (06:04→21:47)
[2019-08-31] MEDS: HYDROcodone/APAP 5 MG/325 MG (LORTAB) TAB PO PRN ×4 (06:05→21:00)
[2019-08-31] MEDS: MULTIVIT W/MINERALS TAB (THERAGRAN M) PO SCH (06:06)
[2019-08-31 06:08] LABS: MEAN PLATELET VOLUME 9.8 FL (7.4-10.4); RED CELL DISTRIBUTION WIDTH 14.8 % (10.0-14.5); WHITE BLOOD COUNT 8.9 10^3/uL (4.3-11.0)
--- NOTE | 2019-08-31 08:00 | Progress Note ---
Subjective Date Seen by a Provider: Aug 31, 2019 Time Seen by a Provider: 07:59 Subjective/Events-last exam TONA. No issues, pain is controlled. Denies CP/SOB/N/V. Objective Exam Vital Signs Date Time Temp Pulse Resp B/P (MAP) Pulse Ox O2 Delivery O2 Flow Rate FiO2 08/31/19 04:00 37.4 79 19 155/80 (105) 92 Room Air 08/31/19 00:50 37.2 76 19 146/76 (99) 94 Room Air 08/30/19 21:00 96 Nasal Cannula 2.00 08/30/19 20:05 36.9 67 18 129/90 (103) 96 2.00 08/30/19 18:00 36.9 08/30/19 16:00 36.6 63 18 139/62 (87) 94 Room Air 08/30/19 12:00 36.7 62 16 183/60 (101) 99 Nasal Cannula 2.00 08/30/19 09:00 Nasal Cannula 2.00 08/30/19 08:00 36.8 72 18 153/82 (105) 100 Nasal Cannula 2.00 I & O 08/31/19 07:00 Intake Total 1580 ml Output Total 1085 ml Balance 495 ml Capillary Refill : Less Than 3 Seconds General Appearance: No Apparent Distress Extremity: Other (5/5 motor nancy LE, wound CDI, ) Results Lab Laboratory Tests 08/30/19 12:56: Glucometer 116H 08/30/19 15:45: Glucometer 112H 08/30/19 21:18: Glucometer 131H 08/31/19 05:05: Sodium Level 141, Potassium Level 3.9, Chloride Level 112H, Carbon Dioxide Level 21, Anion Gap 8, Blood Urea Nitrogen 15, Creatinine 1.03, Estimat Glomerular Filtration Rate 53, BUN/Creatinine Ratio 15, Glucose Level 79, Calcium Level 9.0 08/31/19 05:55: White Blood Count 8.9, Red Blood Count 3.17L, Hemoglobin 8.0L, Hematocrit 26L, Mean Corpuscular Volume 81, Mean Corpuscular Hemoglobin 25, Mean Corpuscular Hemoglobin Concent 31L, Red Cell Distribution Width 14.8H, Platelet Count 191, Mean Platelet Volume 9.8 Assessment/Plan Assessment/Plan Assess & Plan/Chief Complaint s/p DLIF POD 2 PLAN: d/c home today OOB with brace pain control Final Diagnosis stenosis Clinical Quality Measures DVT/VTE Risk/Contraindication: Risk Factor Score Per Nursin RFS Level Per Nursing on Admit: 3=High NOE WALTERS DO Aug 31, 2019 08:00 POS
[2019-08-31] MEDS: meTOprolol SUCCINATE 100 MG (TOPROL XL) TAB PO SCH (08:11)
[2019-08-31] MEDS: PANTOPRAZOLE 20 MG TABLET (PROTONIX) PO SCH (08:11)
[2019-08-31] MEDS: DONEPEZIL 10 MG (ARICEPT) TAB PO SCH (09:14)
--- NOTE | 2019-08-31 10:59 | Occupational Ther Daily Note ---
OT Current Status-Daily Note Subjective Pt laying in bed at start of session, agreeable to OT tx with focus on ADLs. Pt did not verbalize pain rating during session, but did express she had pain during roll. Mental Status/Objective Attachments: Corbett Catheter, IV, SCD's ADL-Treatment Therapy Code Descriptions/Definitions Functional [place] Measure: 0=Not Assessed/NA 4=Minimal Assistance 1=Total Assistance 5=Supervision or Setup 2=Maximal Assistance 6=Modified [place] 3=Moderate Assistance 7=Complete IndependenceSCALE: Activities may be completed with or without assistive devices. 7-Fksqvfmpgm-uzsgheq completes the activity by him/herself with no assistance from a helper. 5-Set-up or Clean-up Assistance-helper sets up or cleans up; patient completes activity. [place] assists only prior to or following the activity. 4-Supervision or Touching Assistance-helper provides verbal cues and/or touching/steadying and/or contact guard assistance as patient completes activity. Assistance may be provided throughout the activity or intermittently. 3-Partial/Moderate Assistance-helper does LESS THAN HALF the effort. [place] lifts, holds or supports trunk or limbs, but provides less than half the effort. 2-Substantial/Maximal Assistance-helper does MORE THAN HALF the effort. [place] lifts or holds trunk or limbs and provides more than half the effort. 5-Ozttzylkh-qqeuwj does ALL the effort. Patient does none of the effort to complete the activity. Or, the assistance of 2 or more helpers is required for the patient to complete the activity. If activity was not attempted, code reason: 7-Patient Refused. 9-Not Applicable-not attempted and the patient did not perform the activity before the current illness, exacerbation or injury. 10-Not Attempted due to Environmental Limitations-(lack of equipment, weather restraints, etc.). 88-Not Attempted due to Medical Conditions or Safety Concerns. Shower/Bathe Self (QC): 1 (OT placed wet washcloth in pt's hand, she was unable to lift arm to wash face. Pt was dependent with all parts of sponge bath on this date) Upper Body Dressing (QC): 1 (OT assisted pt with management of gown on/off during sponge bath, pt unable to lift arms for task. ) Other Treatment Pt laying in bed, attempted to wash face but unable to lift arms. OT assisted pt with sponge bath and UB dressing. Nurse arrived, OT & nurse assisted pt with roll to left side, pt in pain during transfer requiring assist x2. Nurse able to check surgery site on pt's back, pt then able to roll back to her back with assist x1. Post OT session, pt laying in bed, call light in reach and all needs met. Education OT Patient Education: Correct positioning, Energy conservation, Modified ADL techniques, Progress toward Goal/Update tx plan, Purpose of tx/functional activities, Transfer techniques Teaching Recipient: Patient, Family Teaching Methods: Handout, Discussion Response to Teaching: Verbalize Understanding, Return Demonstration, Reinfor cement Needed OT Care Home Goals Care Home Goals Time Frame: Sep 13, 2019 Eating (QC): 6 Oral Hygiene (QC): 6 Toileting Hygiene (QC): 3 Shower/Bathe Self (QC): 3 Upper Body Dressing (QC): 4 Lower Body Dressing (QC): 3 On/Off Footwear (QC): 3 Additional Goals: 1-Demonstrate ADL Tasks, 2-Verbalize Understanding, 3- ImproveStrength/Ady 1=Demonstrate adherence to instructed precautions during ADL tasks. 2=Patient will verbalize/demonstrate understanding of assistive devices/modifications for ADL. 3=Patient will improve strength/tolerance for activity to enable patient to perform ADL's. OT Education/Plan Problem List/Assessment Assessment: Decreased Activ Tolerance, Decreased UE Strength, Dependent Transfers, Impaired Bed Mobility, Impaired I ADL's, Impaired Self-Care Skills, Restricted Funct UE ROM Discharge Recommendations Plan/Recommendations: Continue POC Treatment Plan/Plan of Care Treatment,Training & Education: Yes Patient would benefit from OT for education, treatment and training to promote independence in ADL's, mobility, safety and/or upper extremity function for ADL's. Plan of Care: ADL Retraining, Caregiver Training, Concurrent Therapy, Functional Mobility, UE Funct Exercise/Act Treatment Duration: Sep 13, 2019 Frequency: 5 times per week Estimated Hrs Per Day: .25 hour per day Rehab Potential: Fair Time/GCodes Start Time: 10:23 Stop Time: 10:41 Total Time Billed (hr/min): 18 Billed Treatment Time 1, ADL HOLLEY CELAYA OT Aug 31, 2019 10:58 POS
[2019-08-31] MEDS: fentaNYL INJECTION 100 MCG/2 ML AMP IVP PRN (11:57)
--- NOTE | 2019-08-31 14:00 | Physical Therapy Daily Note ---
PT Daily Note-Current Subjective Pt. in bed, very lethargic, States her name and thinks a long time before recalling the year. Pt. states she cant really remember how she was doing at home and how she was getting around. Pt. cries out in pain with nearly any movement. Discussed with pt. her goals of being up on her feet and ambulation etc. as well as the risks of pnuemonia and blood clots if there is no activity after surgery. Pain Numeric Pain Scale: 8 Location: Medial Location Body Site: Back Pain Description: Stabbing Mental Status Patient Orientation: Person, [place] Attachments: Other-See Comments (back brace, max assist to selina), IV Transfers SCALE: Activities may be completed with or without assistive devices. 3-Lmdfpgdzeh-hhldjop completes the activity by him/herself with no assistance from a helper. 5-Set-up or Clean-up Assistance-helper sets up or cleans up; patient completes activity. [place] assists only prior to or following the activity. 4-Supervision or Touching Assistance-helper provides verbal cues and/or touching/steadying and/or contact guard assistance as patient completes activity. Assistance may be provided throughout the activity or intermittently. 3-Partial/Moderate Assistance-helper does LESS THAN HALF the effort. [place] lifts, holds or supports trunk or limbs, but provides less than half the effort. 2-Substantial/Maximal Assistance-helper does MORE THAN HALF the effort. [place] lifts or holds trunk or limbs and provides more than half the effort. 6-Gtjpoywow-xkebdc does ALL the effort. Patient does none of the effort to complete the activity. Or, the assistance of 2 or more helpers is required for the patient to complete the activity. If activity was not attempted, code reason: 7-Patient Refused. 9-Not Applicable-not attempted and the patient did not perform the activity before the current illness, exacerbation or injury. 10-Not Attempted due to Environmental Limitations-(lack of equipment, weather restraints, etc.). 88-Not Attempted due to Medical Conditions or Safety Concerns. max assist sup to sit and sit to sup Weight Bearing Right Lower Extremity: Right Non Weight Bearing Left Lower Extremity: Left Non Weight Bearing Exercises Supine Ex: Ankle pumps, Quad Set, Glut sets, Heel Slides (ssisted), Hip abd/add (ssisted) Supine Reps: 12 Treatments pt. sat edge of bed approx 8 mins with more and more assist needed as pt. cries out, becomes diaphoretic, head down nearly in lap very kyphotic and required assist to align. Pt. began to "fade" with eyes closing and diaphoresis and was assisted max assist 2 to lay back down. after in supine pt. more alert and again cried out in pain, pt. was positioned in bed with pillows for comfort, call parker at hand, eyes then closed. nursing alerted to pts response during rx Assessment Current Status: Poor Progress pt. seems confused, does not give good effort toward activity PT Branch Manager Trainee Goals Branch Manager Trainee Goals PT Branch Manager Trainee Goals Time Frame: Sep 06, 2019 Roll Left & Right (QC): 3 Sit to Lying (QC): 3 Lying-Sitting on Side/Bed(QC): 3 Sit to Stand (QC): 3 Chair/Sod-dp-Nqitx Xfer(QC): 3 Toilet Transfer (QC): 3 Car Transfer (QC): 3 Does the Patient Walk: No and Walking Goal IS indicated Walk 10 feet (QC): 2 Walk 50ft with 2 Turns (QC): 9 Walk 150 ft (QC): 9 Walking 10ft on Uneven Surface: 9 1 Step (curb) (QC): 9 4 Steps (QC): 9 12 Steps (QC): 9 Picking up an Object (QC): 9 Does the Pt use WC or Scooter?: Yes Wheel 50 feet with 2 turns (QC: 3 Type: Manual Type: Manual PT Plan Treatment/Plan Treatment Plan: Continue Plan of Care Treatment Plan: Bed Mobility, Education, Functional Activity Ady, Functional Strength, Safety, Therapeutic Exercise, Transfers Treatment Duration: Sep 10, 2019 Frequency: 6 times per week Estimated Hrs Per Day: .5 hour per day Patient and/or Family Agrees t: Yes Safety Risks/Education Patient Education: Transfer Techniques, Correct Positioning, Disease Process, Safety Issues Teaching Recipient: Patient Teaching Methods: Demonstration, Discussion Response to Teaching: Unable to Return Demonstration, Unable to Comprehend, Reinforcement Needed Time/GCodes Time In: 1325 Time Out: 1350 Total Billed Treatment Time: 25 Total Billed Treatment 1,FA25m ORQUIDEA HERNANDEZ DIESEL TECHNICIAN MECHANIC Aug 31, 2019 14:00 POS
[2019-08-31] MEDS: doxAzosin 2 MG (CARDURA) TAB PO SCH (20:31)
[2019-08-31] MEDS: ALLOPURINOL 300 MG (ZYLOPRIM) TAB PO SCH (20:31)
[2019-09-01] MEDS: HYDROcodone/APAP 5 MG/325 MG (LORTAB) TAB PO PRN ×3 (03:28→19:24)
[2019-09-01] MEDS: MULTIVIT W/MINERALS TAB (THERAGRAN M) PO SCH (05:53)
[2019-09-01 06:34] VITALS: BP 182/77
[2019-09-01 08:00] VITALS: BP 189/72
[2019-09-01] MEDS: PANTOPRAZOLE 20 MG TABLET (PROTONIX) PO SCH (08:19)
[2019-09-01] MEDS: DONEPEZIL 10 MG (ARICEPT) TAB PO SCH (08:20)
[2019-09-01] MEDS: meTOprolol SUCCINATE 100 MG (TOPROL XL) TAB PO SCH (08:20)
--- NOTE | 2019-09-01 11:00 | Occupational Ther Daily Note ---
OT Current Status-Daily Note Subjective Pt laying in bed at start of session, stating she felt a little nauseous. OT notified nursing. Pt agreeable to OT tx this AM, did not verbalize pain rating during session but she did cry out in pain during transfer. Mental Status/Objective Attachments: Corbett Catheter, IV ADL-Treatment Therapy Code Descriptions/Definitions Functional [place] Measure: 0=Not Assessed/NA 4=Minimal Assistance 1=Total Assistance 5=Supervision or Setup 2=Maximal Assistance 6=Modified [place] 3=Moderate Assistance 7=Complete IndependenceSCALE: Activities may be completed with or without assistive devices. 3-Flaumfjecx-rdcifoz completes the activity by him/herself with no assistance f rom a helper. 5-Set-up or Clean-up Assistance-helper sets up or cleans up; patient completes activity. [place] assists only prior to or following the activity. 4-Supervision or Touching Assistance-helper provides verbal cues and/or touching/steadying and/or contact guard assistance as patient completes activity. Assistance may be provided throughout the activity or intermittently. 3-Partial/Moderate Assistance-helper does LESS THAN HALF the effort. [place] lifts, holds or supports trunk or limbs, but provides less than half the effort. 2-Substantial/Maximal Assistance-helper does MORE THAN HALF the effort. [place] lifts or holds trunk or limbs and provides more than half the effort. 4-Kfxjcacxj-rcnqxj does ALL the effort. Patient does none of the effort to complete the activity. Or, the assistance of 2 or more helpers is required for the patient to complete the activity. If activity was not attempted, code reason: 7-Patient Refused. 9-Not Applicable-not attempted and the patient did not perform the activity before the current illness, exacerbation or injury. 10-Not Attempted due to Environmental Limitations-(lack of equipment, weather restraints, etc.). 88-Not Attempted due to Medical Conditions or Safety Concerns. Upper Body Dressing (QC): 1 (Pt required total assistance donning hospital gown like a robe in order to cover her back before donning back brace. Pt required total assistance donning back brace, pt unable to assist with task due to pain.) Other Treatment Pt laying in bed at start of session, OT gathered supplies for UB dressing in order for pt to have a gown covering her back side before donning back brace. OT/PT cotreat secondary to decreased functional mobility, pain, and medical complexity. OT focused on UE placement and sequencing while PT focused no overall gross movement and LE placement. OT/PT assisted pt from supine to sit with assist X2, then transferring from EOB to recliner with assist X2. Pt cried out in pain during the transfer, OT cued pt to reach back for the recliner before sitting down, pt unable to follow instuctions, sitting down before reaching back. Pt stated her back felt better once in recliner. Post OT session, pt upright in recliner, call light in reach and all needs met. Education OT Patient Education: Energy conservation, Instructions don/doff splint/brace, Modified ADL techniques, Progress toward Goal/Update tx plan, Purpose of tx/functional activities, Transfer techniques Teaching Recipient: Patient Teaching Methods: Demonstration, Discussion Response to Teaching: Verbalize Understanding, Reinforcement Needed OT Halfway Goals Server Administrator Goals Time Frame: Sep 13, 2019 Eating (QC): 6 Oral Hygiene (QC): 6 Toileting Hygiene (QC): 3 Shower/Bathe Self (QC): 3 Upper Body Dressing (QC): 4 Lower Body Dressing (QC): 3 On/Off Footwear (QC): 3 Additional Goals: 1-Demonstrate ADL Tasks, 2-Verbalize Understanding, 3- ImproveStrength/Ady 1=Demonstrate adherence to instructed precautions during ADL tasks. 2=Patient will verbalize/demonstrate understanding of assistive devices/modifications for ADL. 3=Patient will improve strength/tolerance for activity to enable patient to perform ADL's. OT Education/Plan Problem List/Assessment Assessment: Decreased Activ Tolerance, Decreased Safety Aware, Decreased UE Strength, Dependent Transfers, Impaired Bed Mobility, Impaired Funct Balance, Impaired I ADL's, Impaired Self-Care Skills Discharge Recommendations Plan/Recommendations: Continue POC Treatment Plan/Plan of Care Treatment,Training & Education: Yes Patient would benefit from OT for education, treatment and training to promote independence in ADL's, mobility, safety and/or upper extremity function for ADL's. Plan of Care: ADL Retraining, Caregiver Training, Concurrent Therapy, Functional Mobility, UE Funct Exercise/Act Treatment Duration: Sep 13, 2019 Frequency: 5 times per week Estimated Hrs Per Day: .25 hour per day Rehab Potential: Fair Time/GCodes Start Time: 10:30 Stop Time: 10:50 Total Time Billed (hr/min): 20 Billed Treatment Time [id number] (5mins) OT tx [id number] (15mins) OT/PT co-treat 1, FA (20mins) HOLLEY CELAYA OT Sep 01, 2019 11:00 POS
--- NOTE | 2019-09-01 11:53 | Physical Therapy Daily Note ---
PT Daily Note-Current Subjective Patient agrees to PT co-treat with OT at this time for transfer assist of 2. Patient agrees to sit to EOB and transfer to chair. Pain Numeric Pain Scale: 8 Location: Lower Location Body Site: Back Pain Description: Acute Comment: FLACC Mental Status Patient Orientation: Normal For Age Attachments: SCD's, Corbett Catheter, IV Transfers SCALE: Activities may be completed with or without assistive devices. 0-Hmrupbfxop-hnqoetb completes the activity by him/herself with no assistance from a helper. 5-Set-up or Clean-up Assistance-helper sets up or cleans up; patient completes activity. [place] assists only prior to or following the activity. 4-Supervision or Touching Assistance-helper provides verbal cues and/or touching/steadying and/or contact guard assistance as patient completes activity. Assistance may be provided throughout the activity or intermittently. 3-Partial/Moderate Assistance-helper does LESS THAN HALF the effort. [place] lifts, holds or supports trunk or limbs, but provides less than half the effort. 2-Substantial/Maximal Assistance-helper does MORE THAN HALF the effort. [place] lifts or holds trunk or limbs and provides more than half the effort. 1-Mybexqpri-ytofif does ALL the effort. Patient does none of the effort to complete the activity. Or, the assistance of 2 or more helpers is required for the patient to complete the activity. If activity was not attempted, code reason: 7-Patient Refused. 9-Not Applicable-not attempted and the patient did not perform the activity before the current illness, exacerbation or injury. 10-Not Attempted due to Environmental Limitations-(lack of equipment, weather restraints, etc.). 88-Not Attempted due to Medical Conditions or Safety Concerns. Roll Left & Right (QC): 2 Lying to Sitting/Side of Bed(Q: 2 Sit to Stand (QC): 2 Chair/Wlg-oc-Qvtpq Xfer(QC): 2 Weight Bearing Right Lower Extremity: Right Non Weight Bearing Left Lower Extremity: Left Non Weight Bearing Assessment Patient co-treated with OT during transfer for safety and max assist of 2 with transfers. Patient able to assist with bed mobility movement but required assistance with moving LEs to EOB and scooting upper body to sitting EOB. Patient instructed to sit up at EOB and attempt to hold up head instead of leaning. Brace was applied prior to transfer. Patient required assist of 2 to stand and transfer from bed to chair, with instructions to take steps and rotate body towards chair. Patient sat in chair without reaching back with hands beforehand, despite instructions. Patient able to complete a second STS from chair with CGA and FWW. Patient seated in recliner with legs elevated at conclusion of treatment. PT Agronomy Specialist Goals Agronomy Specialist Goals PT Agronomy Specialist Goals Time Frame: Sep 06, 2019 Roll Left & Right (QC): 3 Sit to Lying (QC): 3 Lying-Sitting on Side/Bed(QC): 3 Sit to Stand (QC): 3 Chair/Wyu-ga-Jkxlw Xfer(QC): 3 Toilet Transfer (QC): 3 Car Transfer (QC): 3 Does the Patient Walk: No and Walking Goal IS indicated Walk 10 feet (QC): 2 Walk 50ft with 2 Turns (QC): 9 Walk 150 ft (QC): 9 Walking 10ft on Uneven Surface: 9 1 Step (curb) (QC): 9 4 Steps (QC): 9 12 Steps (QC): 9 Picking up an Object (QC): 9 Does the Pt use WC or Scooter?: Yes Wheel 50 feet with 2 turns (QC: 3 Type: Manual Type: Manual PT Plan Treatment/Plan Treatment Plan: Continue Plan of Care Treatment Plan: Bed Mobility, Education, Functional Activity Ady, Functional Strength, Safety, Therapeutic Exercise, Transfers Treatment Duration: Sep 10, 2019 Frequency: 6 times per week Estimated Hrs Per Day: .5 hour per day Patient and/or Family Agrees t: Yes Time/GCodes Time In: 1035 Time Out: 1050 Total Billed Treatment Time: 15 Total Billed Treatment 1 visit FA 15min REYNA SY PT Sep 01, 2019 11:53 POS
[2019-09-01 12:00] VITALS: BP 184/83
[2019-09-01] MEDS: NS IV 1000 ML 1,000 ML IV SCH (12:12)
[2019-09-01 16:19] VITALS: BP 153/74
--- NOTE | 2019-09-01 19:02 | Progress Note ---
Subjective Date Seen by a Provider: Sep 01, 2019 Time Seen by a Provider: 19:00 Subjective/Events-last exam POD #3 s/p DLIF.[email or web address].[email or web address]. She has significant back pain and has not been up much today. We have discussed rehab placement vs snf and she is agreeable to this. Review of Systems HEENT: No Head Aches Pulmonary: No Dyspnea Musculoskeletal: back pain Neurological: No: Weakness, Numbness, Change in speech, Confusion Objective Exam Vital Signs Date Time Temp Pulse Resp B/P (MAP) Pulse Ox O2 Delivery O2 Flow Rate FiO2 09/01/19 16:19 36.6 66 20 153/74 (100) 97 Room Air 09/01/19 12:00 36.4 59 18 184/83 (116) 96 Room Air 09/01/19 08:00 36.7 71 16 189/72 (111) 93 Room Air 09/01/19 06:34 182/77 (112) 09/01/19 03:45 36.4 65 18 92 Room Air 08/31/19 23:31 36.2 64 18 184/74 (110) 92 Room Air 08/31/19 21:01 36.5 08/31/19 21:00 96 Room Air 08/31/19 21:00 36.5 08/31/19 19:54 36.5 67 18 186/75 (112) 96 Room Air I & O 09/01/19 07:00 Intake Total 750 ml Output Total 570 ml Balance 180 ml Capillary Refill : Less Than 3 Seconds General Appearance: Mild Distress Respiratory: No No Accessory Muscle Use, No No Respiratory Distress Extremity: Non Tender, No Calf Tenderness Neurologic/Psychiatric: Alert, Oriented x3, No Motor/Sensory Deficits, Normal Mood/Affect Skin: Normal Color, Warm/Dry Results Lab Laboratory Tests 08/31/19 20:19: Glucometer 104 08/31/19 23:38: Glucometer 87 09/01/19 06:32: Glucometer 77 09/01/19 11:22: Glucometer 118H 09/01/19 15:55: Glucometer 109 Assessment/Plan Assessment/Plan Assess & Plan/Chief Complaint assessment: POD #3 s/p dlif/lami/psif CAD LISS Plan: Back brace will case management to see if rehab or snf is possibility scd for dvt prophylaxis mobilization and PT IS at bedside and encouraged appriciate Dr Starr assistance with the case and medical management Clinical Quality Measures DVT/VTE Risk/Contraindication: Risk Factor Score Per Nursin RFS Level Per Nursing on Admit: 3=High JENNIFER TRACEY Sep 01, 2019 19:02 POS
[2019-09-01 20:10] VITALS: BP 152/67
[2019-09-01] MEDS: ALLOPURINOL 300 MG (ZYLOPRIM) TAB PO SCH (20:23)
[2019-09-01] MEDS: doxAzosin 2 MG (CARDURA) TAB PO SCH (20:23)
[2019-09-01 23:06] VITALS: BP 188/77
[2019-09-02] MEDS: NS IV 1000 ML 1,000 ML IV SCH ×2 (00:26→09:41)
[2019-09-02] MEDS: HYDROcodone/APAP 5 MG/325 MG (LORTAB) TAB PO PRN ×4 (00:28→14:37)
[2019-09-02 04:27] VITALS: BP 180/99
[2019-09-02] MEDS: MULTIVIT W/MINERALS TAB (THERAGRAN M) PO SCH (04:35)
[2019-09-02 06:15] LABS: BUN/CREATININE RATIO 13; CALCIUM 9.3 MG/DL (8.5-10.1); CARBON DIOXIDE 20 MMOL/L (21-32); CHLORIDE 113 MMOL/L (98-107); CREATININE SERUM 0.89 MG/DL (0.60-1.30); GFR ESTIMATED > 60; GLUCOSE 104 MG/DL (70-105); POTASSIUM 4.2 MMOL/L (3.6-5.0); SODIUM 140 MMOL/L (135-145)
[2019-09-02 08:16] VITALS: BP 192/80
[2019-09-02] MEDS ORDERED: HYDR-3812 PO (09:39)
--- NOTE | 2019-09-02 09:39 | D/C HH Face to Face Order ---
D/C Face to Face Orders Reconcile Patient Problems Problems Reviewed?: Yes Instructions for Patient Via Rosanne [employer], Patient Instructions/FollowUp: follow up in clinic in 2 weeks Physician to follow Patient: Ramesh Discharge Diet for Home: No Restrictions Patient Problems: lumbar stenosis s/p lumbar fusion Goals for Patient: PT to work on ambulation Patient Data-Allergies,Ht & Wt Patient Allergies: Coded Allergies: Sulfa (Sulfonamide Antibiotics) (Verified Allergy, Mild, FLUSHED, 08/24/19) Home Health Need/Face to Face Date of Face to Face: Sep 01, 2019 Clinical Findings: Generalized weakness and fatigue, Muscle weakness, Pain with ambulation, Unsteady gait I have seen Pt ewnx-jb-[id number]: Yes Discharged To: Home Diagnosis/Conditions: lumbar stenosis with claudication and radiculopathy s/p lumbar fusion Patient is Homebound due to: Tu fall risk due to instabilty, Muscle weakness, Pain w/ambulation Homebound Status Due to the above stated illness, injury or surgical procedure (medical condition or diagnosis) and associated clinical findings, the patient is homebound because of his/her inability to leave home except with aid of a supportive device and/or person AND leaving the home requires a considerable and taxing effort or is medically contraindicated. Pt req the following assistanc: Walker Home Health Nursing Orders Home Health Services Order: Nursing Services, Physical Therapy-Evaluate & Treat Home Health Infusion Therapy Line Start Date: Aug 29, 2019 Therapy Orders Therapy Orders: Physical Therapy, PT to assess for OT Therapy Specific Orders: Gait training, Increase strength/endurance, Restore ROM nursing for dressing changes q48 hours as needed. incisions to stay covered and dry Certify Stmt I certify that this patient is under my care and that I, a nurse practitioner or a physician; a real estate assistant working with me, had a face to face encounter that - meets the physician face to face encounter requirements with this patient as dated. JENNIFER TRACEY Sep 02, 2019 09:39 POS
[2019-09-02] MEDS: meTOprolol SUCCINATE 100 MG (TOPROL XL) TAB PO SCH (09:41)
[2019-09-02] MEDS: PANTOPRAZOLE 20 MG TABLET (PROTONIX) PO SCH (09:41)
[2019-09-02] MEDS: DONEPEZIL 10 MG (ARICEPT) TAB PO SCH (09:41)
--- NOTE | 2019-09-02 09:46 | Discharge Summary ---
Diagnosis/Chief Complaint Date of Admission Aug 29, 2019 at 05:48 Date of Discharge Discharge Date: Sep 02, 2019 Admission Diagnosis Admission Diagnosis lumbar stenosis Discharge Diagnosis same Reason Hospital Visit L2-3 DLIF with laminectomy and PSIF Discharge Summary Hospital Course Was the Problem List Reviewed?: Yes Hospital Course Anna was admitted for L2-3 DLIF with laminecotmy and PSIF. She tolerated this well and it occured without complication. However in her post op course she was noted to have LISS which resolved with fluids and d/c of SHA. She reamianed weak and unsteady, although stable. We was dismissed home on POD #[address] [facility] for PT and nursing services. Labs Laboratory Tests 08/30/19 12:56: Glucometer 116H 08/30/19 15:45: Glucometer 112H 08/30/19 21:18: Glucometer 131H 08/31/19 05:05: Chloride Level 112H 08/31/19 05:55: Red Blood Count 3.17L, Hemoglobin 8.0L, Hematocrit 26L, Mean Corpuscular Hemoglobin Concent 31L, Red Cell Distribution Width 14.8H 08/31/19 16:12: 08/31/19 20:19: 08/31/19 23:38: 09/01/19 06:32: 09/01/19 11:22: Glucometer 118H 09/01/19 15:55: 09/01/19 20:53: Glucometer 119H 09/02/19 04:50: Chloride Level 113H, Carbon Dioxide Level 20L Procedures None. Discharge Physical Examination Allergies: Coded Allergies: Sulfa (Sulfonamide Antibiotics) (Verified Allergy, Mild, FLUSHED, 08/24/19) Vitals & I&Os Vital Signs Date Time Temp Pulse Resp B/P (MAP) Pulse Ox O2 Delivery O2 Flow Rate FiO2 09/02/19 08:16 36.4 70 20 192/80 (117) 98 Room Air 09/01/19 21:07 2.00 General Appearance: Alert, Oriented X3, Cooperative, No Acute Distress HEENT: Atraumatic Respiratory: Normal Air Movement Cardiovascular: Regular Rate Abdominal: Soft, No Tenderness Extremities: No Edema Skin: No Rashes, No Breakdown Neuro: Strength at 5/5 X4 Ext, Other (antalgic gait with brace and walker) Discussion & Recommendations patient dismissed home in stable condition with home health Discharge Home Medications Reviewed and agree with Discharge Medication list on patient's Discharge Instruction sheet Instructions to Patient/Family Please see electronic discharge instructions given to patient. Clinical Quality Measures DVT/VTE Risk/Contraindication: Risk Factor Score Per Nursin RFS Level Per Nursing on Admit: 3=High JENNIFER TRACEY Sep 02, 2019 09:45 POS
--- NOTE | 2019-09-02 10:16 | Physical Therapy Daily Note ---
PT Daily Note-Current Subjective Patient agrees to PT at this time. Patient is sitting in chair without back brace on. Reports moderate pain in lower back. Pain Numeric Pain Scale: 5-Moderate Pain Location: Lower Location Body Site: Back Pain Description: Acute Mental Status Patient Orientation: Normal For Age Transfers SCALE: Activities may be completed with or without assistive devices. 8-Wzwjkgvozu-cynehgt completes the activity by him/herself with no assistance from a helper. 5-Set-up or Clean-up Assistance-helper sets up or cleans up; patient completes activity. [place] assists only prior to or following the activity. 4-Supervision or Touching Assistance-helper provides verbal cues and/or touching/steadying and/or contact guard assistance as patient completes activity. Assistance may be provided throughout the activity or intermittently. 3-Partial/Moderate Assistance-helper does LESS THAN HALF the effort. [place] lifts, holds or supports trunk or limbs, but provides less than half the effort. 2-Substantial/Maximal Assistance-helper does MORE THAN HALF the effort. [place] lifts or holds trunk or limbs and provides more than half the effort. 5-Ifystiayw-gmxvdp does ALL the effort. Patient does none of the effort to complete the activity. Or, the assistance of 2 or more helpers is required for the patient to complete the activity. If activity was not attempted, code reason: 7-Patient Refused. 9-Not Applicable-not attempted and the patient did not perform the activity before the current illness, exacerbation or injury. 10-Not Attempted due to Environmental Limitations-(lack of equipment, weather restraints, etc.). 88-Not Attempted due to Medical Conditions or Safety Concerns. Sit to Stand (QC): 5 Weight Bearing Right Lower Extremity: Right Non Weight Bearing Left Lower Extremity: Left Non Weight Bearing Gait Training Does the Patient Walk?: Yes Distance: 20' Walk 10 feet (QC): 3 Gait Assistive Device: FWW Mod assist for safety and to help maneuver walker Exercises Seated Therapy Exercises: Ankle pumps, Long arc quads, Hip flexion Seated Reps: 10 Assessment Patient able to perform all exercises with RLE without difficulty but required assistance with LLE d/t pain and weakness. Brace applied prior to standing. Patient able to stand from chair without assistance. Patient ambulated 20' within room with FWW, requiring moderate assistance with walker maneuvering and safety. Patient returned to chair with legs elevated at conclusion of treatment. PT Resident Physician Goals Resident Physician Goals PT Care Home Goals Time Frame: Sep 06, 2019 Roll Left & Right (QC): 3 Sit to Lying (QC): 3 Lying-Sitting on Side/Bed(QC): 3 Sit to Stand (QC): 3 Chair/Kju-ft-Dxgrm Xfer(QC): 3 Toilet Transfer (QC): 3 Car Transfer (QC): 3 Does the Patient Walk: No and Walking Goal IS indicated Walk 10 feet (QC): 2 Walk 50ft with 2 Turns (QC): 9 Walk 150 ft (QC): 9 Walking 10ft on Uneven Surface: 9 1 Step (curb) (QC): 9 4 Steps (QC): 9 12 Steps (QC): 9 Picking up an Object (QC): 9 Does the Pt use WC or Scooter?: Yes Wheel 50 feet with 2 turns (QC: 3 Type: Manual Type: Manual PT Plan Treatment/Plan Treatment Plan: Continue Plan of Care Treatment Plan: Bed Mobility, Education, Functional Activity Ady, Functional Strength, Safety, Therapeutic Exercise, Transfers Treatment Duration: Sep 10, 2019 Frequency: 6 times per week Estimated Hrs Per Day: .5 hour per day Patient and/or Family Agrees t: Yes Time/GCodes Time In: 949 Time Out: 1008 Total Billed Treatment Time: 19 Total Billed Treatment 1 visit FA 19min REYNA SY PT Sep 02, 2019 10:16 POS
--- NOTE | 2019-09-02 11:42 | Occupational Ther Daily Note ---
OT Current Status-Daily Note Subjective Pt seen reclined in bed, awake. Pt states 8/10 pain while in movement in L hip and back, states she notified nursing of pain. Pt agreeable to OT tx session. Mental Status/Objective Patient Orientation: Normal For Age Attachments: IV, Suprapubic Catheter ADL-Treatment Therapy Code Descriptions/Definitions Functional Chaves Measure: 0=Not Assessed/NA 4=Minimal Assistance 1=Total Assistance 5=Supervision or Setup 2=Maximal Assistance 6=Modified Chaves 3=Moderate Assistance 7=Complete IndependenceSCALE: Activities may be completed with or without assistive devices. 5-Ybjyogflgl-oqcvzml completes the activity by him/herself with no assistance from a helper. 5-Set-up or Clean-up Assistance-helper sets up or cleans up; patient completes activity. [place] assists only prior to or following the activity. 4-Supervision or Touching Assistance-helper provides verbal cues and/or touching/steadying and/or contact guard assistance as patient completes activity. Assistance may be provided throughout the activity or intermittently. 3-Partial/Moderate Assistance-helper does LESS THAN HALF the effort. [place] lifts, holds or supports trunk or limbs, but provides less than half the effort. 2-Substantial/Maximal Assistance-helper does MORE THAN HALF the effort. [place] lifts or holds trunk or limbs and provides more than half the effort. 9-Otgjyckce-dlojej does ALL the effort. Patient does none of the effort to complete the activity. Or, the assistance of 2 or more helpers is required for the patient to complete the activity. If activity was not attempted, code reason: 7-Patient Refused. 9-Not Applicable-not attempted and the patient did not perform the activity before the current illness, exacerbation or injury. 10-Not Attempted due to Environmental Limitations-(lack of equipment, weather restraints, etc.). 88-Not Attempted due to Medical Conditions or Safety Concerns. Eating (QC): 6 Other Treatment Pt completes bed mob with max A, requires assist reaching EOB with max A. Pt sit to stand to FWW with min A, transfers to recliner chair with CGA. Pt s/u for food with tray in front of pt, states she has not had much of an appetite but plans to eat. Pt left with call light in reach, all needs met. Education OT Patient Education: Correct positioning, Purpose of tx/functional activities, Safety issues, Transfer techniques, Use of adapted equipment Teaching Recipient: Patient Teaching Methods: Demonstration, Discussion Response to Teaching: Verbalize Understanding, Return Demonstration OT Television And Radio Repairer Goals Television And Radio Repairer Goals Time Frame: Sep 13, 2019 Eating (QC): 6 Oral Hygiene (QC): 6 Toileting Hygiene (QC): 3 Shower/Bathe Self (QC): 3 Upper Body Dressing (QC): 4 Lower Body Dressing (QC): 3 On/Off Footwear (QC): 3 Additional Goals: 1-Demonstrate ADL Tasks, 2-Verbalize Understanding, 3-ImproveStrength/Ady 1=Demonstrate adherence to instructed precautions during ADL tasks. 2=Patient will verbalize/demonstrate understanding of assistive devices/modifications for ADL. 3=Patient will improve strength/tolerance for activity to enable patient to perform ADL's. OT Education/Plan Problem List/Assessment Assessment: Decreased Activ Tolerance, Decreased UE Strength, Dependent Transfers, Impaired Funct Balance, Impaired I ADL's, Impaired Self-Care Skills Discharge Recommendations Plan/Recommendations: Continue POC Treatment Plan/Plan of Care Treatment,Training & Education: Yes Patient would benefit from OT for education, treatment and training to promote independence in ADL's, mobility, safety and/or upper extremity function for ADL's. Plan of Care: ADL Retraining, Caregiver Training, Concurrent Therapy, Functional Mobility, UE Funct Exercise/Act Treatment Duration: Sep 13, 2019 Frequency: 5 times per week Estimated Hrs Per Day: .25 hour per day Rehab Potential: Fair Time/GCodes Start Time: 09:07 Stop Time: 09:23 Total Time Billed (hr/min): 16 Billed Treatment Time 1, ADL (16) YOMAIRA POND OTR Sep 02, 2019 11:42 POS
[2019-09-02 12:07] VITALS: BP 141/60
[2019-09-02 15:10] VITALS: BP 141/60
== END 2019-09-02 15:10 | disposition home health service (06) | DRG 454 ==
LOC: 4TH 05:48 → SURG 05:49 → 4TH 11:20
PROVIDERS: ADMIT Orthopaedic Surgery; ATTEND Orthopaedic Surgery
PROC: 0SG0071 Fusion of Lumbar Vertebral Joint with Autologous Tissue Substitute, Posterior Approach, Posterior Column, Open Approach (ICD-10-PCS; 2019-08-29)
PROC: 0ST20ZZ Resection of Lumbar Vertebral Disc, Open Approach (ICD-10-PCS; 2019-08-29)
PROC: 01NB0ZZ Release Lumbar Nerve, Open Approach (ICD-10-PCS; 2019-08-29)
PROC: 0SG00A0 Fusion of Lumbar Vertebral Joint with Interbody Fusion Device, Anterior Approach, Anterior Column, Open Approach (ICD-10-PCS; principal; 2019-08-29 07:32)
DX: M43.16 Spondylolisthesis, lumbar region (principal); N17.9 Acute kidney failure, unspecified; M48.061 Spinal stenosis, lumbar region without neurogenic claudication; M54.16 Radiculopathy, lumbar region; I12.9 Hypertensive chronic kidney disease with stage 1 through stage 4 chronic kidney disease, or unspecified chronic kidney disease; E11.40 Type 2 diabetes mellitus with diabetic neuropathy, unspecified; D50.9 Iron deficiency anemia, unspecified; I25.10 Atherosclerotic heart disease of native coronary artery without angina pectoris; I35.0 Nonrheumatic aortic (valve) stenosis; E66.9 Obesity, unspecified; K21.9 Gastro-esophageal reflux disease without esophagitis; K59.09 Other constipation; E78.00 Pure hypercholesterolemia, unspecified; F03.90 Unspecified dementia, unspecified severity, without behavioral disturbance, psychotic disturbance, mood disturbance, and anxiety; F41.9 Anxiety disorder, unspecified; F32.9 Major depressive disorder, single episode, unspecified; G47.33 Obstructive sleep apnea (adult) (pediatric); I69.311 Memory deficit following cerebral infarction; I69.191 Dysphagia following nontraumatic intracerebral hemorrhage; G43.909 Migraine, unspecified, not intractable, without status migrainosus; Z95.5 Presence of coronary angioplasty implant and graft; Z91.19 Patient's noncompliance with other medical treatment and regimen; G89.29 Other chronic pain; Z79.02 Long term (current) use of antithrombotics/antiplatelets; Z79.82 Long term (current) use of aspirin; Z68.32 Body mass index [BMI] 32.0-32.9, adult; Z87.442 Personal history of urinary calculi; Z79.4 Long term (current) use of insulin
CPT/HCPCS: 36415; 72100; 80048; 80053; 82962; 83880; 85027; 86850; 86900; 86901; 94760